=== PATIENT | female | born 1960 | race Caucasian/White ===

== ENCOUNTER 2020-09-19 10:00 | Emergency (ER) | payer OTHER ==
[~2020-09-19] VITALS: Ht 167.6 cm; Wt 120.2 kg
[2020-09-19 10:10] VITALS: BP 140/90
[2020-09-19] MEDS ORDERED: AMOX-430 PO (10:19)
--- NOTE | 2020-09-19 10:27 | NUR ---
WOUND CLEANING DONE BY DATA REDUCTION TECHNICIAN.
--- NOTE | 2020-09-19 10:33 | NUR ---
Patient discharged to home in stable condition. Written and verbal after care instructions given. Patient verbalizes understanding of instruction.
[2020-09-19] MEDS ORDERED: TDAP [DIPH/PERTUSSIS/TET] 0.5 ML VIAL IM ONE ×2 (10:37→11:00)
== END 2020-09-19 10:40 | disposition home or self-care (01) ==
LOC: ER 10:06
DX: S50.12XA Contusion of left forearm, initial encounter (principal); I10 Essential (primary) hypertension; Z88.2 Allergy status to sulfonamides; Z88.1 Allergy status to other antibiotic agents; W54.0XXA Bitten by dog, initial encounter; Y93.89 Activity, other specified; Y92.89 Other specified places as the place of occurrence of the external cause; Y99.8 Other external cause status
CPT/HCPCS: 90715

== ENCOUNTER 2022-06-25 13:33 | Emergency (ER) | payer OTHER ==
[~2022-06-25] VITALS: Ht 165.1 cm; Wt 124.7 kg
[~2022-06-25 13:33] MED LIST: AMOX-430 PO
--- NOTE | 2022-06-25 13:49 | NUR ---
C/O CP MID, NON RADIATING, SOB, ITCHINESS ON THROAT.
--- NOTE | 2022-06-25 13:50 | NUR ---
TECH AT BEDSIDE FOR EKG
--- NOTE | 2022-06-25 13:50 | NUR ---
Blood drawn and sent to lab.
[2022-06-25] MEDS ORDERED: LISI10TA29 PO (13:53)
[2022-06-25] MEDS ORDERED: ROSU5TAB13 PO (13:53)
[2022-06-25] MEDS ORDERED: ASPI-1169 PO (13:53)
[2022-06-25] MEDS ORDERED: HYDR25TA4 PO (13:53)
--- NOTE | 2022-06-25 14:15 | NUR ---
Dr. Shipman at bedside.
[2022-06-25] MEDS ORDERED: diphenhydrAMINE HCL 50 MG/ML VIAL IV ONE (14:30)
[2022-06-25] MEDS ORDERED: FAMOTIDINE (20 MG) 20 MG TABLET PO ONE (14:30)
[2022-06-25] MEDS ORDERED: diphenhydrAMINE HCL 50 MG/ML VIAL ONE (14:34)
[2022-06-25] MEDS ORDERED: FAMOTIDINE (20 MG) 20 MG TABLET ONE (14:34)
[2022-06-25] MEDS ORDERED: FAMOTIDINE/PF INJ 20 MG/2 ML VIAL IV ONE ×2 (14:46→15:00)
[2022-06-25 15:28] LABS: BASOPHILS # (AUTO) 0.1 K/uL (0.0-0.2); BASOPHILS % (AUTO) 0.9 % (0.0-2.0); EOSINOPHILS % (AUTO) 6.1 % (0.0-6.0); HEMATOCRIT 38 % (33-45); HEMOGLOBIN 12.4 g/dL (11.5-14.8); LYMPHOCYTES # (AUTO) 2.9 K/uL (0.8-4.8); LYMPHOCYTES % (AUTO) 36.5 % (20.0-44.0); MEAN CORPUSCULAR HGB CONC 33 g/dl (31.0-36.0); MEAN CORPUSCULAR VOLUME 80 fL (82-100); MONOCYTES # (AUTO) 0.3 K/uL (0.1-1.30); MONOCYTES % (AUTO) 4.3 % (2.0-12.0); NEUTROPHILS # (AUTO) 4.1 K/uL (1.8-8.9); NEUTROPHILS % (AUTO) 52.2 % (43.0-81.0); PLATELET COUNT (AUTO) 327 K/uL (150-450); WHITE BLOOD COUNT (AUTO) 7.9 K/uL (4.3-11.0)
[2022-06-25 15:47] LABS: CARBON DIOXIDE 27 mmol/L (21-32); CHLORIDE 104 mmol/L (98-107); CREATININE 0.9 mg/dL (0.6-1.3); GLUCOSE 115 mg/dL (74-106); POTASSIUM 3.8 mmol/L (3.5-5.1); SODIUM SERUM 139 mmol/L (136-145); UREA NITROGEN, BLOOD 23 mg/dL (7-18)
--- NOTE | 2022-06-25 16:24 | NUR ---
Patient discharged to home in stable condition. Written and verbal after care instructions given. Patient verbalizes understanding of instruction.IV removed. Catheter intact and site benign. Pressure and 4x4 applied to site. No bleeding noted.
[2022-06-25 16:25] VITALS: BP 122/88
== END 2022-06-25 16:25 | disposition home or self-care (01) ==
LOC: ER 13:36
DX: T78.49XA Other allergy, initial encounter (principal); T50.905A Adverse effect of unspecified drugs, medicaments and biological substances, initial encounter; I10 Essential (primary) hypertension; Z60.2 Problems related to living alone; Z79.899 Other long term (current) drug therapy; Z88.2 Allergy status to sulfonamides; Z88.8 Allergy status to other drugs, medicaments and biological substances; Y92.89 Other specified places as the place of occurrence of the external cause
CPT/HCPCS: 99285; 96374; 71045; 96375; 93005; 85025; 80048; 36415; 84484; J1200; J3490; J7030